=== PATIENT | female | born 2000 | race Caucasian/White ===

== ENCOUNTER 2019-02-25 03:29 | Emergency (ER) | payer BC, OTHER ==
[2019-02-25 05:55] LABS: URINE BLOOD (Dip) POC Trace-intact (NEGATIVE); URINE GLUCOSE (Dip) POC Negative (NEGATIVE); URINE KETONES (Dip) POC Trace (NEGATIVE); URINE LEUKOCYTE EST (Dip) POC Negative (NEGATIVE); URINE NITRITE (Dip) POC Positive (NEGATIVE); URINE TOTAL PROTEIN POC 1+ (NEGATIVE)
[2019-02-25 05:55] LABS: URINE PH (Dip) POC 8.5 (5.0-8.5)
[2019-02-25] MEDS: ONDANSETRON (ODT) 4 MG TAB ODT (06:02)
[2019-02-25] MEDS: LIDOCAINE/MYLANTA 40 ML BTL PO (06:02)
== END 2019-02-25 06:36 | disposition home or self-care (01) ==
LOC: FTE 03:29
DX: N30.90 Cystitis, unspecified without hematuria (principal)
CPT/HCPCS: 81003; 81025; 99283